=== PATIENT | female | born 1970 | race Caucasian/White ===

== ENCOUNTER → 2019-09-27 | Outpatient (CLI) | payer BC | LOC: COL.RAD 07:30 | DX: M25.551 Pain in right hip (principal) | CPT/HCPCS: J3301; Q9967 ==

== ENCOUNTER → 2021-12-10 | Outpatient (CLI) | payer BC | LOC: COL.RAD 13:26 | DX: M25.552 Pain in left hip (principal) | CPT/HCPCS: G0260; J3301 ==